=== PATIENT | female | born 1995 | race Caucasian/White ===

== ENCOUNTER 2017-08-12 14:51 | Emergency (ER) | payer OTHER ==
[~2017-08-12] VITALS: Ht 167.6 cm; Wt 63.5 kg
[~2017-08-12 14:51] MED LIST: MOTRIN 400MG.400 MG PO
[2017-08-12] MEDS ORDERED: FALMINA PO (14:59)
[2017-08-12] MEDS ORDERED: BACTROBAN 2% C1 INCH EX (15:38)
[2017-08-12] MEDS ORDERED: BACTRIM DS 8001 TA1 PO (15:38)
--- NOTE | 2017-08-12 15:39 | [facility]gent [facility] Report ---
History of Present Issue Date/Time Seen by Provider 08/12/17 1525 Visit Reason Pt arrived:Walked Presenting Problem:PT STATES SHE HAS "BUG BITE" ON HER LEFT ARM. AC IS RED AND RAISED AREA IS NOTED. AREA IS ITCHY Location if Accident: Onset of symptoms date/time:/ or onset unknown for:MEDICAL HX UNKNOWN Have you (or family members/close friends) recently traveled outside the [place]? N If Yes, where/when: Have you had exposure to infectious disease within the past month? TB? Other? Specify: Patient state that she noticed a "bug bite" on her left ac area on Saturday states that today she noticed that there was redness around it and like she had before with cellulitis States that the area is itchy and has continued to get worse as the day went on State that she has had cellulitis before and feels alot like it did then ALLERGIES Coded Allergies: No Known Allergies (05/27/17) Home Medications Reported Medications LEVONORGESTREL-ETHIN ESTRADIOL (Falmina-28 Tablet) 1 TAB PO DAILY #28 History Medical History General CAD? No Angina: No ND: No Hypertension? No Hyperlipidemia? No CHF? No DVT? No PE? No COPD? No Asthma? No Anemia? No GERD? No Gastric ulcers? No GI Bleed? No Hernia? No Thyroid Problems? No Hypothyroidism? No CVA? No Seizures? No Diabetes? No Renal Insuffiency? No UTI? No Stones? No BPH? No GB Disease: No Nephritic Syndrome? No Asplenia? No Hepatitis? No Sickle Cell Disease? No Arthritis? No Migraines? No Cataracts? No Glaucoma? No MRSA? No HIV? No TB? No Anxiety? No Depression? No Cancer? No More? No Immunization HX DT/Tetanus 1-4 Years Ago Surgical Hx Previous Surgery?N Social History Smoking Hx Smoker: Never Smoker Tobacco: No Alcohol Alcohol: No Review of Systems All Other Systems Reviewed and Negative Comment Redness, small raised area on left ac area warm to touch Physical Exam Vital Signs Vital Signs Date Time Temp Pulse Resp B/P Pulse O2 O2 Flow FiO2 Ox Delivery Rate 08/12 1457 97.9 70 18 125/81 100 General Appearance normal appearance, WD/WN, no apparent distress Respiratory Status Yes: trachea midline, chest symmetrical. No: respiratory distress. 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 area marked for patient to monitor to see if antibiotics are helping to decrease size of area Comments denies fever, denies streaks from area, Medical Decision Making LABS/Meds/Orders Pt receiving controlled substance in ED? No Results/Orders Orders Procedure Date/time Status CULTURE, WOUND 08/12 153 Active Departure Departure Time of Disposition 1534 Disposition DC Home or Self Care(routine) Clinical Impression Primary Impression: Cellulitis Qualifiers: Site of cellulitis: extremity Site of cellulitis of extremity: upper extremity Laterality: left Qualified Code: L03.114 - Cellulitis of left upper limb Condition STABLE Referrals Luba SAEZ,Kimberly Chin (Family) Patient Instructions Cellulitis, DI for Cellulitis -- Adult Additional Instructions Take medication as prescribed Follow up with family doctor Return if needed If you began to see any streaks, increasing in size or other signs that it may be worsening go straight to the ER Over the counter Motrin or Tylenol as needed for pain Discharge Counseling Counseled pt/family regarding diagnosis, medications/RX, home care, follow up needs Prescriptions Current Visit Scripts MUPIROCIN CALCIUM (Bactroban 2% Cream 15GM Tube) 1 INCH EX TID #1 TUBE apply to wound three times a day for 10 days SULFAMETHOXAZOLE W/TRIMETHOPRI (Bactrim Ds Tab) 1 TABLET PO BID #20 TAB at 1535
[2017-08-12 15:41] VITALS: BP 125/81
== END 2017-08-12 15:47 | disposition home or self-care (01) ==
LOC: UTC 14:51
DX: L03.114 Cellulitis of left upper limb (principal)